=== PATIENT | female | born 1935 | race Caucasian/White ===

== ENCOUNTER 2019-10-26 09:58 | Emergency (ER) | payer MEDICARE ==
[2019-10-26] MEDS ORDERED: Ketorolac 30 MG/ML SDV IM ONE (10:26)
--- NOTE | 2019-10-26 10:32 | EDM.PDOC ---
ED HPI GENERAL MEDICAL PROBLEM - General Chief Complaint: Lower Extremity Injury/Pain Stated Complaint: MEDICAL [facility]IA [facility] Time Seen by Provider: 10/26/19 10:21 Source of Information: Reports: Patient, RN Notes Reviewed History Limitations: Reports: No Limitations - History of Present Illness INITIAL COMMENTS - FREE TEXT/NARRATIVE: 83-year-old female presents emergency department a complaint of left ankle pain she denies any trauma she does have a known history of gout she states this feels very similar to her gout attack she also has had troubles with gout in her second toe on the left foot states over the last couple days it has gotten more painful Left Ankle Pain Score (Numeric/FACES): 8 - Related Data Allergies Allergy/AdvReac Type Severity Reaction Status Date / Time No Known Allergies Allergy Verified 10/26/19 10:00 Home Meds: Home Meds Furosemide 20 mg PO DAILY 10/26/19 [History] Insulin Glarg,Human.Rec.Analog [Lantus Solostar] 24 unit SUBCUT BEDTIME 10/26/19 [History] Insulin Glargine,Hum.Rec.Anlog [Basaglar Kwikpen U-100] 24 unit SQ BEDTIME 10/26/19 [History] Liraglutide [Victoza 3-Arley] 1.8 mg .XX BEDTIME 10/26/19 [History] Losartan [Cozaar] 25 mg PO DAILY 10/26/19 [History] Trospium [Sanctura] 20 mg PO ACBRK 10/26/19 [History] atorvaSTATin [Lipitor] 20 mg PO BEDTIME 10/26/19 [History] metFORMIN [Glucophage XR] 500 mg PO PCLUNCH 10/26/19 [History] predniSONE [Prednisone] 20 mg PO DAILY #20 tablet 10/26/19 [Rx] Past Medical History Cardiovascular History: Reports: High Cholesterol, Hypertension Respiratory History: Reports: Asthma, COPD Gastrointestinal History: Reports: Cholelithiasis, Other (See Below) Other Gastrointestinal History: non alcoholic fatty liver disease Genitourinary History: Reports: Chronic Renal Insuffiency, Urinary Incontinence, Other (See Below) Other Genitourinary History: hx of JAMIE Musculoskeletal History: Reports: Gout Psychiatric History: Reports: Depression Endocrine/Metabolic History: Reports: Diabetes, Type II, Hyperparathyroidism, Obesity/BMI 30+ Social & Family History - Tobacco Use Smoking Status *Q: Never Smoker - Recreational Drug Use Recreational Drug Use: No Review of Systems - Review of Systems Review Of Systems: See Below Respiratory: Reports: No Symptoms Cardiovascular: Reports: No Symptoms GI/Abdominal: Reports: No Symptoms Musculoskeletal: Reports: Foot Pain ED EXAM, GENERAL - Physical Exam Exam: See Below Free Text/Narrative:: Examination of the left ankle I do appreciate some edema around the ankle the second toe is also 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 Course - Vital Signs Last Recorded V/S: Last Vital Signs Temp 96.1 F L 10/26/19 10:02 Pulse 104 H 10/26/19 10:25 Resp 18 10/26/19 10:25 BP 129/62 10/26/19 10:25 Pulse Ox 95 10/26/19 10:25 - Orders/Labs/Meds Labs: Laboratory Tests 10/26/19 10/26/19 Range/Units 10:39 10:39 WBC 10.8 (4.5-11.0) K/uL RBC 4.18 (3.30-5.50) M/uL Hgb 12.6 (12.0-15.0) g/dL Hct 39.1 (36.0-48.0) % MCV 94 (80-98) fL MCH 30 (27-31) pg MCHC 32 (32-36) % Plt Count 190 (150-400) K/uL Neut % (Auto) 78 H (36-66) % Lymph % (Auto) 13 L (24-44) % Price % (Auto) 8 H (2-6) % Eos % (Auto) 2 (2-4) % Baso % (Auto) 0 (0-1) % Uric Acid 8.4 H (2.6-6.2) mg/dL Meds: Medications Discontinued Medications Generic Name Dose Route Start Last Admin Trade Name Freq PRN Reason Stop Dose Admin Ketorolac Tromethamine 30 mg 10/26/19 10:26 10/26/19 10:49 Toradol IM 10/26/19 10:27 30 mg ONETIME ONE Administration Departure - Departure Time of Disposition: 11:43 Disposition: Home, Self-Care 01 Condition: Fair Clinical Impression: Gout Qualifiers: Gout site: ankle Gout etiology: unspecified cause Chronicity: acute Laterality: left Qualified Code(s): M10.9 - Gout, unspecified - Discharge Information Prescriptions: predniSONE [Prednisone] 20 mg PO DAILY #20 tablet Referrals: PCP,None [Primary Care Provider] - Forms: ED Department Discharge Additional Instructions: Take full course of prednisone, your medications have been faxed to [facility] in [facility] on [address], please followup with your primary care provider in 3-5 days if not better, please call return to the emergency department with worsening of symptoms., Sepsis Event Note (ED) - Evaluation Sepsis Screening Result: No Definite Risk - Focused Exam Vital Signs: Vital Signs Temp Pulse Resp BP Pulse Ox 10/26/19 10:25 104 H 18 129/62 95 10/26/19 10:02 96.1 F L 106 H 18 142/79 H 94 L - Assessment/Plan Plan: Assessment Acuity = acute Site and laterality = gout flareup left ankle Etiology = unknown Manifestations = none Location of injury = Home Lab values = CBC unremarkable uric acid elevated 8.5 Plan She has noted prednisone in the past with good relief therefore tapered prescription was written 60 mg for 3 days followed by 40 mg for 3 days followed by 20 for 3 days then 10 mg for 4 days follow-up primary care in 3 to 5 days if not better medications faxed to [facility] This note was dictated using [employer] voice recognition software please call with any questions on syntax or grammar.
== END 2019-10-26 13:42 | disposition home or self-care (01) ==
LOC: JP.ED 09:58
DX: M10.9 Gout, unspecified (principal); E78.00 Pure hypercholesterolemia, unspecified; I12.9 Hypertensive chronic kidney disease with stage 1 through stage 4 chronic kidney disease, or unspecified chronic kidney disease; E11.22 Type 2 diabetes mellitus with diabetic chronic kidney disease; N18.9 Chronic kidney disease, unspecified; E66.9 Obesity, unspecified; Z68.36 Body mass index [BMI] 36.0-36.9, adult; Z79.4 Long term (current) use of insulin; Z79.899 Other long term (current) drug therapy
CPT/HCPCS: 36415; 84550; 85025; 96372; 99284; J1885; 99282